=== PATIENT | male | born 1985 | race African-American/Black ===

== ENCOUNTER 2019-12-27 04:24 | Emergency (ER) | payer SELFPAY ==
[~2019-12-27] VITALS: Ht 185.4 cm; Wt 75.0 kg
[2019-12-27 04:35] VITALS: BP 119/64
[2019-12-27] MEDS ORDERED: IBUPROFEN 600MG TABLET PO ONE (05:45)
[2019-12-27] MEDS ORDERED: HYDROCODONE/ACETAMINOPHEN 10/325MG TABLET PO ONE (06:00)
== END 2019-12-27 06:10 | disposition home or self-care (01) ==
LOC: ER 04:24
DX: S62.91XA Unspecified fracture of right hand, initial encounter for closed fracture (principal); X58.XXXA Exposure to other specified factors, initial encounter; Y93.89 Activity, other specified; Y92.89 Other specified places as the place of occurrence of the external cause; Y99.8 Other external cause status
CPT/HCPCS: 29125; 73130; 99283